=== PATIENT | female | born 1965 | race Caucasian/White ===

== ENCOUNTER 2017-01-30 12:19 | Emergency (ER) | payer MEDICAID ==
[~2017-01-30] VITALS: Ht 152.4 cm; Wt 61.5 kg
[~2017-01-30 12:19] MED LIST: HYDR-762 PO; NITR-58 PO; ONDA4TAB35 PO
[2017-01-30 12:22] VITALS: Ht 152.4 cm; Wt 61.5 kg
--- NOTE | 2017-01-30 13:01 | ERD ---
ER Documentation Chief Complaint Date/Time DATE: 01/30/17 TIME: 13:00 Chief Complaint Complains of sorethroat x 3 days HPI Patient is a 51-year-old female who presents to the ED with sore throat, cough, congestion and ear pain 3 days. She states that she has not taken any medication for her symptoms. Denies fever or chills. Denies chest pain, shortness of breath or difficulty breathing. Denies leg pain or swelling. Denies recent travel or recent surgeries. Denies drainage. Denies headache or dizziness. No other complaints ROS All systems reviewed and are negative except as per history of present illness. Medications Home Meds Active Scripts Acetaminophen* (Tylophen*) 500 Mg Capsule, 1 CAP PO Q6H Y for PAIN AND OR ELEVATED TEMP, #20 CAP Prov:SHANNAN WITT PA-C 01/30/17 Cetirizine Hcl* (Zyrtec*) 10 Mg Capsule, 10 MG PO DAILY, #30 TAB.CHEW Prov:SHANNAN WITT PA-C 01/30/17 Benzonatate* (Tessalon Perle*) 100 Mg Capsule, 100 MG PO Q8H Y for COUGH for 14 Days, CAP Prov:SHANNAN WITT-C 01/30/17 Azithromycin* (Zithromax*) 250 Mg Tablet, 250 MG PO .ZPACK DIRECTED, #6 TAB TAKE 500 MG (2 TABS) THE FIRST DAY THEN 250 MG (1 TAB) DAYS 2-5 Prov:SHANNAN WITT PA-C 01/30/17 Nitrofurantoin Monohyd Macrocr* (Macrobid*) 100 Mg Capsr, 100 MG PO BID for 7 Days Prov:AYLEEN STORM MD 04/11/15 Ondansetron Hcl* (Zofran* ODT) 4 mg -ODT Tab.disper, 4 MG PO Q6 Y for NAUSEA AND /OR VOMITING, #20 TAB Prov:AYLEEN STORM MD 04/11/15 Hydrocodone Bit-Acetaminophen* ([place]*) 10-325 Mg Tablet, 1 TAB PO Q6 Y for PAIN , #12 TAB Prov:AYLEEN STORM MD 04/11/15 Allergies Allergies: Coded Allergies: No Known Allergy (Unverified , 04/11/15) PMhx/Soc History of Surgery: Yes (appendectomy) Anesthesia Reaction: No Hx Neurological Disorder: No Hx Respiratory Disorders: No Hx Cardiac Disorders: No Hx Psychiatric Problems: No Hx Miscellaneous Medical Probl: Yes (DM) Hx Alcohol Use: No Hx Substance Use: No Hx Tobacco Use: No Smoking Status: Never smoker FmHx Family History: No coronary disease, No diabetes, No other Physical Exam Vitals Vital Signs Date Time Temp Pulse Resp B/P Pulse Ox O2 Delivery O2 Flow Rate FiO2 01/30/17 12:22 97.3 72 20 125/57 96 Physical Exam GENERAL: Well-developed, well-nourished female. Appears in no acute distress. HEAD: Normocephalic, atraumatic. EYES: Pupils are equally reactive bilaterally. EOMs grossly intact. No conjunctival erythema. ENT: Moist mucous membranes. No uvula deviation. No kissing tonsils. No exudates. Bilateral TMs are nonerythematous and nonbulging. NECK: Supple. No lymphadenopathy or thyromegaly. No meningismus. negative kernig. negative brudinski. LUNG: Clear to auscultation bilaterally. No rhonchi, wheezing, rales or coarse breath sounds. HEART: Regular rate and rhythm. No murmurs, rubs or gallops. Extremities: Equal pulses bilaterally. No peripheral clubbing, cyanosis or edema. No unilateral leg swelling. NEUROLOGIC: Alert and oriented. Moving all four extremities. 5/5 strength in all extremities. Normal speech. Steady gait. SKIN: Normal color. Warm and dry. No rashes or lesions. Capillary refill < 2 seconds Procedures/MDM ER COURSE: I kept the patient and/or family informed of laboratory and diagnostic imaging results throughout the emergency room course. IMAGING STUDIES [place] [id number] Radiology Main Line: [phone] DIAGNOSTIC IMAGING REPORT Patient: BLANCHE ALLEN : 1965 Age: 51 Sex: F MR #: [id number] DOS: 01/30/17 1248 Ordering MD: SHANNAN WITT PA-C Location: [facility] Room/Bed: PROCEDURE: XR Chest 1 View. CLINICAL INDICATION: Cough TECHNIQUE: AP view of the chest was obtained. COMPARISON: None. FINDINGS: The cardiomediastinal silhouette is within normal limits. No consolidations are identified. No pneumothorax is seen. Left heart border is obscured. Osseous structures are intact. IMPRESSION: Obscured left heart border. Finding could reflect prominent epicardial fat versus lingular atelectasis/infiltrate. RPTAT: AA .Denton Lam MD, MD Date Time Electronically viewed and signed by .Denton Lam MD, MD on 01/30/2017 14:29 .P/ CC: SHANNAN WITT PA-C MEDICAL DECISION MAKING: This is a 51-year-old female who presents with cough, sore throat and congestion 3 days. Vital signs were reviewed. Patient is afebrile. Patient is not hypoxic. Patient is not toxic or ill-appearing. Patient likely has URI of viral etiology however due to the suspicious area on the chest x-ray I will be treating the patient with azithromycin. Patient does not show signs of respiratory distress. Low suspicion for pneumonia, PE, pneumothorax, ACS, epiglottitis, obstruction, TB, pertussis, meningitis, sepsis. DISCHARGE: At this time, patient is stable for discharge and outpatient management with no new complaints during the ER course. Patient was sent home with azithromycin, Tessalon Perles, Tylenol, Zyrtec. Patient will be discharged home with instructions to recheck for new or worsening symptoms such as fever, nausea, weakness, LOC and to follow up with primary care in the next 1-2 days. Patient was advised to return to the ER for any new or worsening symptoms. Plan was discussed and patient and/or family understands and agrees. Home instructions were given. Departure Diagnosis: Primary Impression: Sore throat Condition: Stable SHANNAN WITT PA-C Jan 30, 2017 13:01
--- NOTE | 2017-01-30 14:30 | RADRPT ---
PROCEDURE: XR Chest 1 View. CLINICAL INDICATION: Cough TECHNIQUE: AP view of the chest was obtained. COMPARISON: None. FINDINGS: The cardiomediastinal silhouette is within normal limits. No consolidations are identified. No pneu mothorax is seen. Left heart border is obscured. Osseous structures are intact. IMPRESSION: Obscured left heart border. Finding could reflect prominent epicardial fat versus lingular atelecta sis/infiltrate. RPTAT: AA .Denton Lam MD, MD Date Time Electronically viewed and signed by .Denton Lam MD, on 01/30/2017 14:29 .P/
[2017-01-30] MEDS ORDERED: AZIT250T94 PO (14:42)
[2017-01-30] MEDS ORDERED: CETI10CA PO (14:42)
[2017-01-30] MEDS ORDERED: BENZ100C70 PO (14:42)
[2017-01-30] MEDS ORDERED: ACET500C5 PO (14:43)
== END 2017-01-30 14:57 | disposition home or self-care (01) ==
LOC: FTE 12:19
DX: J02.9 Acute pharyngitis, unspecified (principal); E11.9 Type 2 diabetes mellitus without complications
CPT/HCPCS: 71010

== ENCOUNTER 2017-11-15 09:59 | Emergency (ER) | END 2017-11-15 12:33 | disposition home or self-care (01) ==

== ENCOUNTER 2018-04-07 10:29 | Emergency (ER) | END 2018-04-07 13:35 | disposition home or self-care (01) ==

== ENCOUNTER 2018-06-12 10:24 | Emergency (ER) | END 2018-06-12 16:48 | disposition home or self-care (01) ==